=== PATIENT | female | born 2000 | race Caucasian/White ===

== ENCOUNTER 2024-07-31 09:18 | Emergency (ER) | payer MEDICAID ==
[~2024-07-31] VITALS: Ht 172.7 cm; Wt 54.4 kg
--- NOTE | 2024-07-31 10:04 | ERN ---
General Chief Complaint: Cough Stated Complaint: COUGH AND CONGESTION Time Seen by MD: 09:20 History of Present Illness Initial Comments 24-year-old female, history of anxiety depression, presents for cough and congestion and sore throat for the last few days. She reports a nonproductive dry cough, a bit of a sore throat and body aches. Denies any fever or vomiting diarrhea or dysuria. Denies any CP shortness of breath. The patient's mother and her son have similar symptoms currently. Allergies: Coded Allergies: No Known Drug Allergies (Unverified Allergy, Unknown, 07/31/24) Past Medical History Past Medical History: Depression Past Surgical History: None Female( History) LMP: Jul 07, 2024 ROS Dictation CONSTITUTIONAL: Generalized weakness HEAD/FACE: No signs of trauma. EENT: Sore throat RESPIRATORY: Cough congestion CARDIOVASCULAR: No chest pain, no edema, no palpitations, no syncope. GASTROINTESTINAL/ABDOMINAL: No abdominal pain, no constipation, no diarrhea, no nausea, no vomiting. GENITOURINARY: No abnormal discharge, no dysuria, no frequent urination, no hematuria. No complaints of pain in the genitals. MUSCULOSKELETAL: No back pain, no gout, no joint pain, no joint swelling, no muscle pain, no muscle stiffness, no neck pain. INTEGUMENTARY: No change in color, no change in hair/nails, no dryness, no lesion, no lumps, no rash. NEUROLOGICAL/PSYCH: No anxiety, not depressed, no emotional problem, no headache, no numbness, no pre-existing deficit, no history of seizures, no tremors, no weakness. HEMATOLOGIC/LYMPHATIC: Not anemic, no history of blood clots, no apparent bleeding, no bruising, glands not swollen. All Systems Negative, Except as Noted. Physical Exam Physical Exam Dictation VITAL SIGNS: Reviewed. GENERAL APPEARANCE: Alert, oriented x3, no acute distress. HEAD AND FACE: Non-traumatic. EYES: PERRL, pink conjunctivas, eyelid no trauma, anterior chamber clear. EARS: Pinnas intact and no signs of trauma or erythema. Ear canals clear and no discharge. TMs no erythema. NOSE: No discharge, no bleeding. OROPHARYNX: Mouth normal, teeth no caries, tongue pink. Pharynx clear, no erythema. Tonsils no exudates, no abscesses noted. Mucous membrane moist. NECK: Supple, non-tender, no thyromegaly, no masses, no JVD, no bruits. BREAST: Deferred. CHEST: No tenderness, no crepitus, no paradoxical movement, no retractions. LUNGS: Clear, well-ventilated, symmetric, no rales, no wheezing, no rhonchi, no stridor, good breath sounds bilaterally. HEART: Regular rate, regular rhythm, no murmur, no gallops. VASCULAR: No peripheral edema. ABDOMEN: Soft, positive bowel sounds, nondistended, no guarding, nontender, no rebound, no masses no hepatomegaly, no splenomegaly, no Dior's sign, no hernias. RECTAL: Deferred. GENITAL: Deferred. NEUROLOGICAL: Normal speech, gross motor function intact, gross sensory function intact. MUSCULOSKELETAL: Neck nontender, full range of motion, back nontender, full range of motion. EXTREMITIES: Nontender, full range of motion. SKIN: Color pink, dry, no turgor, no rash, no lacerations, no abrasions, no contusions. LYMPHATICS: Deferred. Results Laboratory and Microbiology Lab and Micro Result Laboratory Tests Test 07/31/24 09:30 Influenza Type A Antigen Negative For Type A Influenza Type B Antigen Negative For Type B SARS-CoV-2 Antigen (Rapid) PRESUMPTIVE NEGATIVE MDM CC: Cough congestion for few days, sore throat, afebrile Historian patient Comorbidities: Takes Zoloft Limitations by social determinants of health: None Vital signs are stable Differential diagnosis: Viral pharyngitis, viral URI, pneumonia, etc.. Clinical exam is unremarkable. Stable vital signs. Lung sounds are clear. Nontoxic in appearance. She is afebrile, her son has similar symptoms. Flu SARS were negative. Symptoms consistent with a viral upper respiratory infection. No labs or imaging indicated. We will DC with supportive care and recommend PCP follow up as needed. ED Course Orders Procedure Category Date Status Time Covid19 (Sars Antigen LAB 07/31/24 Complete Rapid) 09:22 Influenza Type A & B, LAB 07/31/24 Complete Rapid 09:22 Vital Signs Date Time Temp Pulse Resp B/P (MAP) Pulse Ox O2 Delivery O2 Flow Rate FiO2 07/31/24 09:20 98.2 138 18 110/73 97 Room Air 0 DX & DISP Disposition: Discharge Departure Impression: Primary Impression: Viral URI Condition: Stable Additional Instructions: You have a viral upper respiratory infection, or the common cold. Symptoms can include cough, congestion, sore throat and mild fever. Symptoms typically resolve in 7-10 days. Your flu and COVID swabs are negative. Be sure to stay hydrated. Drink plenty of liquids. Water, herbal teas, and clear broths are good choice. For fever and pain relief, alternate 400 mg of ibuprofen or 500 mg of Tylenol every 4 hours. For congestion relief, you can use saline nasal spray or [id number] Afrin. You can use [id number] cough medications with guaifenesin (Mucinex). Avoid medications that include dextromethorphan because those can interact with the Zoloft. Take frequent showers or use a humidifier. The humidity can break up congestion. Get plenty of rest. Avoid irritants such as smoking. Eat a light, vegetable and fruit healthy diet to increase your vitamin intake. Please return to the emergency department if you have any concerns such as persistent fever, respiratory distress, or any other concerning symptom. ELIJAH BURRELL DO Jul 31, 2024 10:04
[2024-07-31 10:06] LABS: INFLUENZA TYPE A Negative For Type A (NEGATIVE); INFLUENZA TYPE B Negative For Type B (NEGATIVE)
[2024-07-31 10:09] LABS: COVID19 (SARS ANTIGEN RAPID) PRESUMPTIVE NEGATIVE (NEGATIVE)
[2024-07-31 10:51] VITALS: BP 115/79; PULSE 100; RESP 20; TEMP 99.1; O2SAT 98
== END 2024-07-31 11:00 | disposition home or self-care (01) ==
LOC: EDH 09:18
DX: J06.9 Acute upper respiratory infection, unspecified (principal); B97.89 Other viral agents as the cause of diseases classified elsewhere; F32.A Depression, unspecified; F41.9 Anxiety disorder, unspecified; Z20.822 Contact with and (suspected) exposure to COVID-19
CPT/HCPCS: 87426; 87804; 99283